=== PATIENT | female | born 1940 | race Caucasian/White ===

== ENCOUNTER 2018-01-03 10:52 | Emergency (ER) | payer BC ==
[~2018-01-03] VITALS: Ht 162.6 cm; Wt 70.3 kg
[2018-01-03 11:28] VITALS: BP 116/57
[2018-01-03 12:21] LABS: Urine Bacteria FEW /hpf (None Seen); Urine Blood Negative /uL (Negative); Urine Specific Gravity 1.007 (1.001-1.035); Urine WBC 1 /hpf (0 - 5)
== END 2018-01-03 12:29 | disposition home or self-care (01) ==
LOC: ER 10:52
DX: N39.0 Urinary tract infection, site not specified (principal)
CPT/HCPCS: 81001